=== PATIENT | male | born 1950 | race Caucasian/White ===

== ENCOUNTER 2023-06-09 00:40 | Emergency (ER) | payer OTHER ==
[~2023-06-09] VITALS: Ht 177.8 cm; Wt 10.0 kg
[2023-06-09 01:08] VITALS: BP_SYST 123; PULSE 119; RESP 19; TEMP 97.9; O2SAT 97
[2023-06-09] MEDS ORDERED: LIDOCAINE 1% 10 MG/ML, 20 ML MDV INJ ONE (01:30)
[2023-06-09] MEDS ORDERED: BACITRACIN 1 GM OINT TP ONE (01:30)
[2023-06-09 02:17] VITALS: BP_SYST 123; PULSE 119; RESP 19; TEMP 97.9; O2SAT 97
== END 2023-06-09 02:17 | disposition home or self-care (01) ==
LOC: SED 00:40
DX: S91.114A Laceration without foreign body of right lesser toe(s) without damage to nail, initial encounter (principal); I10 Essential (primary) hypertension; Z79.899 Other long term (current) drug therapy; W19.XXXA Unspecified fall, initial encounter; Y93.89 Activity, other specified; Y92.89 Other specified places as the place of occurrence of the external cause; Y99.8 Other external cause status
CPT/HCPCS: 99282; 12001; J2001